=== PATIENT | female | born 1985 | race Caucasian/White ===

== ENCOUNTER 2019-03-17 14:05 | Emergency (ER) | payer SELFPAY ==
[~2019-03-17] VITALS: Ht 167.6 cm; Wt 65.0 kg
[2019-03-17 14:48] VITALS: BP 128/83
[2019-03-17] MEDS ORDERED: BACITRACIN ZINC OINT UDPKT TOP ONE (22:15)
[2019-03-17] MEDS ORDERED: BACITRACIN 15GM TUBE TOP NR (22:45)
== END 2019-03-17 22:53 | disposition home or self-care (01) ==
LOC: ER 14:05 → EDSEX 14:05 → ER 22:53
DX: S81.801D Unspecified open wound, right lower leg, subsequent encounter (principal); M19.90 Unspecified osteoarthritis, unspecified site; E78.00 Pure hypercholesterolemia, unspecified; F12.10 Cannabis abuse, uncomplicated; F17.200 Nicotine dependence, unspecified, uncomplicated; Z88.0 Allergy status to penicillin; X19.XXXD Contact with other heat and hot substances, subsequent encounter
CPT/HCPCS: 99282

== ENCOUNTER 2019-03-18 16:39 | Emergency (ER) | payer OTHER ==
[~2019-03-18] VITALS: Ht 162.6 cm; Wt 59.0 kg
[2019-03-18] MEDS ORDERED: MIDAZOLAM HCL 2 MG/2 ML VIAL IM ONE (18:00)
[2019-03-18] MEDS ORDERED: SODIUM CHLORIDE 0.9% 1,000 ML IV ONE (18:27)
[2019-03-18] MEDS ORDERED: OLANZAPINE 10 MG/VIAL IM ONE (18:30)
[2019-03-18] MEDS ORDERED: LORAZEPAM 2MG/ML CPJ IM ONE (18:30)
[2019-03-18 19:20] LABS: *BARBITURATES SCREEN URINE NEGATIVE (NEGATIVE); *BENZODIAZEPINES SCREEN URINE NEGATIVE (NEGATIVE); *COCAINE SCREEN URINE NEGATIVE (NEGATIVE); METHADONE URINE SCREEN NEGATIVE (NEGATIVE)
[2019-03-18 19:21] LABS: BASOPHILS % 0.2 % (0.0-2.0); EOSINOPHILS % 0.1 % (0.0-5.0); HEMATOCRIT. 38.3 % (36.0-48.0); HEMOGLOBIN. 13.2 g/dL (12.0-16.0); MEAN CORPUSCULAR HEMOGLOBIN 30.7 pg (28.0-32.0); MONOCYTES % 3.1 % (2.0-8.0); NEUTROPHILS % 88.6 % (40.0-76.0); PLATELET 233 x1000/uL (130-400); RED CELL DISTRIBUTION WIDTH 15.1 % (11.6-14.6)
[2019-03-18 19:21] LABS: CANNABINOID URINE SCREEN NEGATIVE (NEGATIVE); OPIATES URINE SCREEN NEGATIVE (NEGATIVE); PHENCYCLIDINE URINE SCREEN NEGATIVE (NEGATIVE)
[2019-03-18 19:25] LABS: CHLORIDE 110 mEq/L (98-107)
[2019-03-18 19:32] LABS: ETHANOL BLOOD < 10 mg/dL
[2019-03-18 19:41] LABS: CREATINE KINASE 115 IU/L (26-192)
[2019-03-18 19:43] LABS: *AMPHETAMINES SCREEN URINE PRESUMTIVE POSITIVE (NEGATIVE)
[2019-03-18 19:46] LABS: HCG SCREEN NEGATIVE
[2019-03-19 00:21] VITALS: BP 122/68
== END 2019-03-19 00:25 | disposition home or self-care (01) ==
LOC: ER 16:39
DX: T43.641A Poisoning by ecstasy, accidental (unintentional), initial encounter (principal); T43.621A Poisoning by amphetamines, accidental (unintentional), initial encounter; G92 Toxic encephalopathy; R41.0 Disorientation, unspecified; F29 Unspecified psychosis not due to a substance or known physiological condition; M19.90 Unspecified osteoarthritis, unspecified site; F31.9 Bipolar disorder, unspecified; E78.00 Pure hypercholesterolemia, unspecified; F12.10 Cannabis abuse, uncomplicated; Z88.0 Allergy status to penicillin; Y92.89 Other specified places as the place of occurrence of the external cause
CPT/HCPCS: 36415; 51702; 80053; 80305; 80307; 80320; 80329; 82550; 83690; 84443; 84484; 84703; 85025; 93005; 96361; 96372; 99284; J2060; J2250; J3490; J7030; Z7610; G0480